=== PATIENT | female | born 1990 | race Caucasian/White ===

== ENCOUNTER 2017-12-15 08:52 | Outpatient (CLI) | payer OTHER ==
[~2017-12-15 08:52] MED LIST: INSULIN SYR1 DIS.S10 MC; LEVEMIR100 U/ML; MACROBID 100 M100 MG PO; NOVOLOG100 U/ML; PROMETRIUM200 MG PO
== END 2017-12-15 09:32 | disposition home or self-care (01) ==
LOC: LAB 08:52
DX: E11.9 Type 2 diabetes mellitus without complications (principal); R42 Dizziness and giddiness

== ENCOUNTER 2023-04-20 13:29 | Outpatient (CLI) | payer OTHER | END 2023-04-20 14:13 | disposition home or self-care (01) | LOC: PRENATAL 13:29 | PROVIDERS: ATTEND Obstetrics & Gynecology Maternal & Fetal Medicine | DX: O24.319 Unspecified pre-existing diabetes mellitus in pregnancy, unspecified trimester (principal); O36.80X0 Pregnancy with inconclusive fetal viability, not applicable or unspecified; O34.219 Maternal care for unspecified type scar from previous cesarean delivery; O14.90 Unspecified pre-eclampsia, unspecified trimester ==

== ENCOUNTER 2023-06-25 08:03 | Outpatient (CLI) | payer OTHER | END 2023-06-25 09:14 | disposition home or self-care (01) | LOC: PRENATAL 08:03 | PROVIDERS: ATTEND Obstetrics & Gynecology Maternal & Fetal Medicine | DX: O35.3XX0 Maternal care for (suspected) damage to fetus from viral disease in mother, not applicable or unspecified (principal); O24.319 Unspecified pre-existing diabetes mellitus in pregnancy, unspecified trimester; O34.219 Maternal care for unspecified type scar from previous cesarean delivery; O14.90 Unspecified pre-eclampsia, unspecified trimester; Z3A.20 20 weeks gestation of pregnancy ==

== ENCOUNTER 2023-07-18 08:10 | Outpatient (CLI) | payer OTHER | END 2023-07-18 08:48 | disposition home or self-care (01) | LOC: PRENATAL 08:10 | PROVIDERS: ATTEND Obstetrics & Gynecology Maternal & Fetal Medicine | DX: O26.849 Uterine size-date discrepancy, unspecified trimester (principal); O36.8199 Decreased fetal movements, unspecified trimester, other fetus; O24.319 Unspecified pre-existing diabetes mellitus in pregnancy, unspecified trimester; O34.219 Maternal care for unspecified type scar from previous cesarean delivery; O14.90 Unspecified pre-eclampsia, unspecified trimester; Z3A.24 24 weeks gestation of pregnancy ==

== ENCOUNTER 2023-08-15 13:32 | Outpatient (CLI) | payer OTHER | END 2023-08-15 13:36 | disposition home or self-care (01) | LOC: PRENATAL 13:32 | PROVIDERS: ATTEND Obstetrics & Gynecology Maternal & Fetal Medicine | DX: O26.849 Uterine size-date discrepancy, unspecified trimester (principal); O36.8199 Decreased fetal movements, unspecified trimester, other fetus; O24.319 Unspecified pre-existing diabetes mellitus in pregnancy, unspecified trimester; O34.219 Maternal care for unspecified type scar from previous cesarean delivery; O14.90 Unspecified pre-eclampsia, unspecified trimester; Z3A.28 28 weeks gestation of pregnancy ==

== ENCOUNTER 2023-09-11 12:02 | Outpatient (CLI) | payer OTHER | END 2023-09-11 12:04 | disposition home or self-care (01) | LOC: PRENATAL 12:02 | PROVIDERS: ATTEND Obstetrics & Gynecology Maternal & Fetal Medicine | DX: O26.849 Uterine size-date discrepancy, unspecified trimester (principal); O36.8199 Decreased fetal movements, unspecified trimester, other fetus; O24.319 Unspecified pre-existing diabetes mellitus in pregnancy, unspecified trimester; O34.219 Maternal care for unspecified type scar from previous cesarean delivery; O14.90 Unspecified pre-eclampsia, unspecified trimester; Z3A.31 31 weeks gestation of pregnancy ==

== ENCOUNTER 2023-09-24 05:23 | Inpatient (IN) | payer OTHER ==
[~2023-09-24] VITALS: Ht 162.6 cm; Wt 79.8 kg
[~2023-09-24 05:23] MED LIST changes: +HUMALOG100 UNIT/1 SUBCUTANEO; +HUMULIN N100 UNIT/2 SUBCUTANEO
[2023-09-24] MEDS ORDERED: PRENATAL CAPLE1 EAC1 PO (06:07)
[2023-09-24] MEDS ORDERED: NEURONTIN300 MG PO (06:08)
[2023-09-24] MEDS ORDERED: NOVOLIN R100 UNIT/1 SUBCUTANEO ×2 (06:11)
[2023-09-24 07:02] LABS: PH,URINE 6.5 (5.0-8.0); URINE APPEARANCE Clear; URINE BILIRRUBIN Negative (NEGATIVE); URINE BLOOD Negative; URINE COLOR Yellow; URINE LEUKOCYTE Negative; URINE NITRATE Negative
[2023-09-24 07:04] LABS: URINE BACTERIA 308.5 uL (0.0-1933); URINE EPITHELIAL CELLS 16.2 uL (0.0-38.8); URINE WBC 9.4 uL (0.0-23.2)
[2023-09-24 07:23] LABS: URINE RBC 1.4 uL (0.0-20.8)
[2023-09-24 07:24] LABS: URINE GLUCOSE >=1000 MG/DL (NEGATIVE); URINE PROTEIN 100 (NEGATIVE)
[2023-09-24 07:28] LABS: ALBUMIN 2.2 gm/dL (3.4-5.0); BILIRUBIN TOTAL 0.16 mg/dL (0.3-1.2); CALCIUM 9.2 mg/dL (8.5-10.1); CREATININE SERUM 0.79 mg/dL (0.55-1.02); GFR 85.45; GLOBULINA 3.6 G/DL (2.4-3.5); HEMATOCRIT 32.8 % (36.0-45.00); HEMOGLOBIN 11.1 g/dL (12.0-15.00); MEAN CORPUSCULAR HEMOGLOBIN 26.8 pg (27.00-32.0); PLATELET COUNT 149 K/uL (150-450); POTASSIUM 3.96 mEq/L (3.5-5.1); RED BLOOD COUNT 4.15 M/uL (4.00-6.00); RED CELL DISTRIBUTION WIDTH 14.7 % (11.5-14.5); TOTAL PROTEIN 5.8 gm/dL (6.4-8.2)
[2023-09-24 07:34] LABS: INR < 0.93; PARTIAL THROMBOPLASTIN TIME 25.3 SECONDS (22.0-34.0); PROTHROMBIN TIME 9.3 SECONDS (9.0-11.5)
[2023-09-25 06:52] LABS: URINE PROT QUANT 24HR 128.2 MG/DL
[2023-09-25] MEDS ORDERED: LABETALOL HCL100 MG PO (09:37)
== END 2023-09-25 11:24 | disposition home or self-care (01) | DRG 832 ==
LOC: LDR 05:23
PROVIDERS: Obstetrics & Gynecology; ADMIT Specialist; ATTEND Specialist
PROC: 4A1HXCZ Monitoring of Products of Conception, Cardiac Rate, External Approach (ICD-10-PCS; principal; 2023-09-24)
PROC: BY4FZZZ Ultrasonography of Third Trimester, Single Fetus (ICD-10-PCS; 2023-09-24)
DX: O13.3 Gestational [pregnancy-induced] hypertension without significant proteinuria, third trimester (principal); O24.313 Unspecified pre-existing diabetes mellitus in pregnancy, third trimester; E11.8 Type 2 diabetes mellitus with unspecified complications; Z3A.33 33 weeks gestation of pregnancy; Z20.822 Contact with and (suspected) exposure to COVID-19; O36.8130 Decreased fetal movements, third trimester, not applicable or unspecified; Z79.4 Long term (current) use of insulin; Z79.85 Long-term (current) use of injectable non-insulin antidiabetic drugs

== ENCOUNTER 2023-10-11 14:50 | Inpatient (IN) | payer OTHER ==
[~2023-10-11] VITALS: Ht 162.6 cm; Wt 86.2 kg
[~2023-10-11 14:50] MED LIST changes: +LABETALOL HCL100 MG PO; +NEURONTIN300 MG PO; +NOVOLIN R100 UNIT/1 SUBCUTANEO; +PRENATAL CAPLE1 EAC1 PO
[2023-10-11] MEDS ORDERED: PRENATAL TABLE1 EAC1 (16:21)
[2023-10-11] MEDS ORDERED: NEURONTIN800 MG PO (16:22)
[2023-10-11] MEDS ORDERED: LABETALOL HCL100 MG PO (16:22)
[2023-10-11 16:30] LABS: HEMATOCRIT 38.2 % (36.0-45.00); HEMOGLOBIN 12.7 g/dL (12.0-15.00); MEAN CELL VOLUME 79.3 fL (80.00-100.00); MEAN CORPUSCULAR HEMOGLOBIN 26.3 pg (27.00-32.0); MEAN CORPUSCULAR HGB CONC 33.1 g/dl (32.0-36.0); PLATELET COUNT 149 K/uL (150-450); RED BLOOD COUNT 4.82 M/uL (4.00-6.00); RED CELL DISTRIBUTION WIDTH 15.2 % (11.5-14.5)
[2023-10-11 16:34] LABS: URINE APPEARANCE Cloudy; URINE BILIRRUBIN Negative (NEGATIVE); URINE BLOOD Trace; URINE COLOR Dark Yellow; URINE LEUKOCYTE Negative; URINE NITRATE Negative; URINE PROTEIN >=1000 (NEGATIVE)
[2023-10-11 16:37] LABS: URINE BACTERIA 1828.2 uL (0.0-1933); URINE EPITHELIAL CELLS 86.8 uL (0.0-38.8); URINE RBC 11.9 uL (0.0-20.8); URINE WBC 77.1 uL (0.0-23.2)
[2023-10-11 16:45] LABS: INR < 0.93; PROTHROMBIN TIME 9.2 SECONDS (9.0-11.5)
[2023-10-11 16:53] LABS: ALBUMIN 1.9 gm/dL (3.4-5.0); BILIRUBIN TOTAL 0.19 mg/dL (0.3-1.2); CALCIUM 9.5 mg/dL (8.5-10.1); CREATININE SERUM 1.09 mg/dL (0.55-1.02); GFR 58.94; GLOBULINA 3.9 G/DL (2.4-3.5); POTASSIUM 4.37 mEq/L (3.5-5.1); TOTAL PROTEIN 5.8 gm/dL (6.4-8.2)
[2023-10-11 17:26] LABS: URINE GLUCOSE 100 MG/DL (NEGATIVE)
[2023-10-12 00:54] LABS: HEMATOCRIT 34.2 % (36.0-45.00); HEMOGLOBIN 11.4 g/dL (12.0-15.00); MEAN CELL VOLUME 79.5 fL (80.00-100.00); MEAN CORPUSCULAR HEMOGLOBIN 26.4 pg (27.00-32.0); MEAN CORPUSCULAR HGB CONC 33.4 g/dl (32.0-36.0); RED BLOOD COUNT 4.31 M/uL (4.00-6.00)
[2023-10-12 00:55] LABS: PLATELET COUNT 133 K/uL (150-450)
[2023-10-13] MEDS ORDERED: IBUPROFEN800 MG PO (08:20)
[2023-10-13] MEDS ORDERED: LABETALOL HCL100 MG PO (08:20)
== END 2023-10-13 10:17 | disposition home or self-care (01) | DRG 786 ==
LOC: SURH 14:50 → LDR 14:50 → SURH 10-12 12:04
PROVIDERS: ADMIT Specialist; ATTEND Specialist
PROC: 4A1HXCZ Monitoring of Products of Conception, Cardiac Rate, External Approach (ICD-10-PCS; 2023-10-11)
PROC: 10D00Z1 Extraction of Products of Conception, Low, Open Approach (ICD-10-PCS; principal; 2023-10-11 15:00)
DX: O36.4XX0 Maternal care for intrauterine death, not applicable or unspecified (principal); O24.32 Unspecified pre-existing diabetes mellitus in childbirth; O60.14X0 Preterm labor third trimester with preterm delivery third trimester, not applicable or unspecified; O14.14 Severe pre-eclampsia complicating childbirth; O24.92 Unspecified diabetes mellitus in childbirth; Z3A.36 36 weeks gestation of pregnancy; Z37.1 Single stillbirth; Z79.4 Long term (current) use of insulin; E11.8 Type 2 diabetes mellitus with unspecified complications; Z79.85 Long-term (current) use of injectable non-insulin antidiabetic drugs; O34.211 Maternal care for low transverse scar from previous cesarean delivery

== ENCOUNTER 2025-03-10 10:49 | Outpatient (CLI) | payer OTHER ==
[~2025-03-10 10:49] MED LIST changes: +IBUPROFEN800 MG PO; +NEURONTIN800 MG PO; +PRENATAL TABLE1 EAC1
== END 2025-03-10 10:51 | disposition home or self-care (01) ==
LOC: PRENATAL 10:49
PROVIDERS: ATTEND Obstetrics & Gynecology Maternal & Fetal Medicine
DX: Z76.1 Encounter for health supervision and care of foundling (principal)

== ENCOUNTER 2025-04-09 08:20 | Outpatient (CLI) | payer OTHER | END 2025-04-09 08:22 | disposition home or self-care (01) | LOC: PRENATAL 08:20 | PROVIDERS: ATTEND Obstetrics & Gynecology Maternal & Fetal Medicine | DX: O36.80X0 Pregnancy with inconclusive fetal viability, not applicable or unspecified (principal); Z36.82 Encounter for antenatal screening for nuchal translucency; Z14.8 Genetic carrier of other disease; O24.319 Unspecified pre-existing diabetes mellitus in pregnancy, unspecified trimester; O10.019 Pre-existing essential hypertension complicating pregnancy, unspecified trimester; O34.219 Maternal care for unspecified type scar from previous cesarean delivery; Z3A.12 12 weeks gestation of pregnancy ==

== ENCOUNTER 2025-05-21 05:54 | Emergency (ER) | payer OTHER ==
[~2025-05-21] VITALS: Ht 162.6 cm; Wt 79.8 kg
[~2025-05-21 05:54] MED LIST changes: +INSULIN SYRING1 EA29 SUBCUTANEO; +NOVOLOG100 U/ML SQ
[2025-05-21 06:08] VITALS: BP 136/85; O2SAT 99
[2025-05-21] MEDS ORDERED: KETOROLAC TROMETHAMINE 60 MG VIAL IM STA (07:01)
== END 2025-05-21 10:24 | disposition home or self-care (01) ==
LOC: ER 05:54
DX: O26.892 Other specified pregnancy related conditions, second trimester (principal); Z3A.18 18 weeks gestation of pregnancy; S13.4XXA Sprain of ligaments of cervical spine, initial encounter; V43.52XA Car driver injured in collision with other type car in traffic accident, initial encounter; W22.11XA Striking against or struck by driver side automobile airbag, initial encounter; Y93.89 Activity, other specified; Y92.413 State road as the place of occurrence of the external cause; Z91.040 Latex allergy status; E11.9 Type 2 diabetes mellitus without complications; Z79.4 Long term (current) use of insulin; I10 Essential (primary) hypertension

== ENCOUNTER 2025-06-05 08:25 | Outpatient (CLI) | payer OTHER ==
[2025-06-08] MEDS ORDERED: INSULIN GL100 UNIT/1 SUBCUTANEO (13:40)
[2025-06-08] MEDS ORDERED: INSULIN SYRING1 EA29 SUBCUTANEO (13:41)
== END 2025-06-05 08:26 | disposition home or self-care (01) ==
LOC: PRENATAL 08:25
PROVIDERS: ATTEND Obstetrics & Gynecology Maternal & Fetal Medicine
DX: O44.00 Complete placenta previa NOS or without hemorrhage, unspecified trimester (principal); O24.319 Unspecified pre-existing diabetes mellitus in pregnancy, unspecified trimester; O10.019 Pre-existing essential hypertension complicating pregnancy, unspecified trimester; O34.219 Maternal care for unspecified type scar from previous cesarean delivery; Z3A.20 20 weeks gestation of pregnancy

== ENCOUNTER 2025-07-10 09:10 | Outpatient (CLI) | payer OTHER ==
[~2025-07-10 09:10] MED LIST changes: +INSULIN GL100 UNIT/1 SUBCUTANEO
== END 2025-07-10 09:11 | disposition home or self-care (01) ==
LOC: PRENATAL 09:10
PROVIDERS: ATTEND Obstetrics & Gynecology Maternal & Fetal Medicine
DX: O26.849 Uterine size-date discrepancy, unspecified trimester (principal); O24.319 Unspecified pre-existing diabetes mellitus in pregnancy, unspecified trimester; O10.019 Pre-existing essential hypertension complicating pregnancy, unspecified trimester; O34.219 Maternal care for unspecified type scar from previous cesarean delivery; Z3A.26 26 weeks gestation of pregnancy

== ENCOUNTER → 2025-08-05 12:08 | Outpatient (CLI) | payer OTHER | END | disposition home or self-care (01) | LOC: PRENATAL 12:08 | PROVIDERS: ATTEND Obstetrics & Gynecology Maternal & Fetal Medicine | DX: O26.849 Uterine size-date discrepancy, unspecified trimester (principal); O36.8130 Decreased fetal movements, third trimester, not applicable or unspecified; O24.319 Unspecified pre-existing diabetes mellitus in pregnancy, unspecified trimester; O10.019 Pre-existing essential hypertension complicating pregnancy, unspecified trimester; O34.219 Maternal care for unspecified type scar from previous cesarean delivery; O36.60X0 Maternal care for excessive fetal growth, unspecified trimester, not applicable or unspecified; Z3A.31 31 weeks gestation of pregnancy ==

== ENCOUNTER 2025-08-25 13:07 | Inpatient (IN) | payer OTHER ==
[~2025-08-25] VITALS: Ht 162.6 cm; Wt 88.0 kg
[2025-08-25 12:44] VITALS: BP 124/76
[2025-08-25 13:28] LABS: BASO % 0.2 % (0.1-1.2); EOS # 0.10 (0.04-0.54); EOS % 0.9 % (0.7-7.0); LYMPH # 2.39 (1.18-3.74); LYMPH % 22.6 % (19.3-53.1); MEAN PLATELET VOLUME 11.20 fl (9.4-12.4); MONO # 0.86 (0.24-0.82); MONO % 8.1 % (4.7-12.5); NEUT # 7.19 (1.56-6.13); NEUT % 68.0 % (34.0-71.1); RED CELL DISTRIBUTION WIDTH 13.3 % (11.6-14.4)
[2025-08-25] MEDS ORDERED: RINGERS SOLUTION,LACTATED 1,000 ML IV SCH (13:30)
[2025-08-25] MEDS ORDERED: TERBUTALINE SULFATE 1 MG/ML AMPUL SUBCUTANEO ONE (13:30)
[2025-08-25 13:31] LABS: URINE APPEARANCE Clear; URINE BILIRRUBIN Negative (NEGATIVE); URINE BLOOD Negative; URINE COLOR Yellow; URINE GLUCOSE Negative (NEGATIVE); URINE KETONE Negative (NEGATIVE); URINE LEUKOCYTE Large; URINE NITRATE Negative; URINE PROTEIN 30 (NEGATIVE); URINE UROBILINOGEN 1.0 E.U./dl
[2025-08-25 13:32] LABS: URINE BACTERIA 1107.4 uL (0.0-1933); URINE EPITHELIAL CELLS 31.8 uL (0.0-38.8); URINE RBC 2.4 uL (0.0-20.8); URINE WBC 36.9 uL (0.0-23.2)
[2025-08-25 13:40] LABS: URINE CAST 0.29 uL (0.0-1.40)
[2025-08-25] MEDS ORDERED: ADULT LOW DOSE81 M1 PO (13:41)
[2025-08-25 15:27] VITALS: BP 128/81
[2025-08-25] MEDS ORDERED: INSULIN LISPRO 1,000 UNIT/10 ML UNITS SUBCUTANEO SCH (16:00)
[2025-08-25] MEDS ORDERED: DOCUSATE SODIUM 100MG CAP PO SCH (17:00)
[2025-08-25 19:44] VITALS: BP 127/73
[2025-08-25] MEDS ORDERED: INSULIN GLARGINE,HUM.REC.ANLOG 1,000 UNITS/10 ML UNITS SUBCUTANEO SCH (21:00)
[2025-08-25] MEDS ORDERED: MetFORMIN HCL 500 MG TABLET PO SCH (21:00)
[2025-08-25] MEDS ORDERED: MAGNESIUM SULFATE IN WATER 4 GM/100 ML PIGGYBACK IV ONE (22:45)
[2025-08-25] MEDS ORDERED: MAGNESIUM SULFATE IN WATER 500 ML IV SCH (22:45)
[2025-08-25 23:25] VITALS: BP 124/76
[2025-08-26 04:02] VITALS: BP 119/76
[2025-08-26 06:00] VITALS: BP 101/68; BP 119/76
[2025-08-26] MEDS ORDERED: BETAMETHASONE ACETATE,SOD PHOS 30 MG/5 ML ML IM STA (06:21)
[2025-08-26 07:33] VITALS: BP 117/74
[2025-08-26] MEDS ORDERED: PNV,CALCIUM 72/IRON/FOLIC ACID 1 TAB TABLET PO SCH (09:00)
[2025-08-26] MEDS ORDERED: LABETALOL HCL 100 MG TABLET PO SCH (09:00)
[2025-08-26] MEDS ORDERED: ASPIRIN 81 MG TABLET.EC PO SCH (09:00)
[2025-08-26] MEDS ORDERED: MORPHINE SULFATE 4 MG/ML CARTRIDGE IV STA (09:06)
[2025-08-26 11:35] VITALS: BP 117/73
[2025-08-26] MEDS ORDERED: INSULIN LISPRO 1,000 UNIT/10 ML UNITS SUBCUTANEO PRN (12:15)
[2025-08-26 15:52] VITALS: BP 121/79
[2025-08-26] MEDS ORDERED: ACETAMINOPHEN 500 MG GEL..CAP PO ONE (17:51)
[2025-08-26 18:30] VITALS: BP 128/74; O2SAT 98
[2025-08-26] MEDS ORDERED: ACETAMINOPHEN 500 MG GEL..CAP PO PRN (19:00)
[2025-08-26] MEDS ORDERED: MORPHINE SULFATE 4 MG/ML CARTRIDGE IV ONE (19:00)
[2025-08-26] MEDS ORDERED: FAMOTIDINE/PF 20 MG/2 ML VIAL IV PUSH PRN (21:00)
[2025-08-27] VITALS (7 sets, daily range): BP systolic 102–137; BP diastolic 63–74; O2SAT 96–99
[2025-08-27] MEDS ORDERED: BETAMETHASONE ACETATE,SOD PHOS 30 MG/5 ML ML IM SCH (06:00)
[2025-08-27] MEDS ORDERED: MAGNESIUM HYDROXIDE 30 ML BLIST.PACK PO STA (08:20)
[2025-08-27] MEDS ORDERED: MINERAL OIL 30 ML BLIST.PACK PO STA (08:20)
[2025-08-28 04:00] VITALS: BP 102/75
[2025-08-28 06:23] VITALS: BP 129/79; O2SAT 98
[2025-08-28] MEDS ORDERED: MAGNESIUM HYDROXIDE 30 ML BLIST.PACK PO STA (06:31)
[2025-08-28] MEDS ORDERED: MINERAL OIL 30 ML BLIST.PACK PO STA (06:32)
[2025-08-28] MEDS ORDERED: INSULIN LISPRO 1,000 UNIT/10 ML UNITS SUBCUTANEO PRN (11:00)
[2025-08-28 12:17] VITALS: BP 119/75
[2025-08-28 15:35] VITALS: BP 118/62
[2025-08-28] MEDS ORDERED: INSULIN LISPRO 1,000 UNIT/10 ML UNITS SUBCUTANEO STA (16:52)
[2025-08-28 19:31] VITALS: BP 135/70
[2025-08-28] MEDS ORDERED: NIFEDIPINE 20 MG CAPSULE PO STA (22:34)
[2025-08-28] MEDS ORDERED: NIFEDIPINE 10 MG CAPSULE PO PRN (22:45)
[2025-08-28 23:16] VITALS: BP 133/77
[2025-08-29 03:38] VITALS: BP 109/63
[2025-08-29 07:44] VITALS: BP 135/74
[2025-08-29 15:42] VITALS: BP 121/73
[2025-08-29] MEDS ORDERED: NIFEDIPINE 30 MG TAB.SA.OSM PO SCH (17:30)
[2025-08-29 23:38] VITALS: BP 121/78
[2025-08-30 04:15] VITALS: BP 128/81
[2025-08-30 07:28] VITALS: BP 135/84
[2025-08-30 11:27] VITALS: BP 133/78
[2025-08-30 15:20] VITALS: BP 133/86
[2025-08-30] MEDS ORDERED: DOCUSATE SODIUM 100MG CAP PO SCH (17:00)
[2025-08-30 23:32] VITALS: BP 116/75; O2SAT 100
[2025-08-31 03:32] VITALS: BP 116/74
[2025-08-31 06:29] VITALS: BP 121/65; O2SAT 97
[2025-08-31 11:29] VITALS: BP 149/76
[2025-08-31 15:17] VITALS: BP 139/76
[2025-08-31 20:10] VITALS: BP 133/79
[2025-08-31 23:40] VITALS: BP 132/71; O2SAT 98
[2025-09-01 03:14] VITALS: BP 130/68
[2025-09-01 06:13] VITALS: BP 121/55; O2SAT 98
[2025-09-01] MEDS ORDERED: MINERAL OIL 30 ML BLIST.PACK PO STA (08:40)
[2025-09-01] MEDS ORDERED: MAGNESIUM HYDROXIDE 30 ML BLIST.PACK PO STA (08:41)
[2025-09-01] MEDS ORDERED: FAMOTIDINE/PF 20 MG/2 ML VIAL IV PRN (08:45)
[2025-09-01 15:39] VITALS: BP 135/78
[2025-09-01 19:14] VITALS: BP 137/70
[2025-09-01 23:25] VITALS: BP 122/59; O2SAT 97
[2025-09-02] VITALS (10 sets, daily range): BP systolic 130–162; BP diastolic 60–84; O2SAT 98–99
[2025-09-02 08:40] LABS: BASO % 0.1 % (0.1-1.2); EOS # 0.18 (0.04-0.54); EOS % 2.3 % (0.7-7.0); LYMPH # 2.35 (1.18-3.74); LYMPH % 30.2 % (19.3-53.1); MEAN PLATELET VOLUME 11.10 fl (9.4-12.4); MONO # 0.74 (0.24-0.82); MONO % 9.5 % (4.7-12.5); NEUT # 4.50 (1.56-6.13); NEUT % 57.8 % (34.0-71.1); RED CELL DISTRIBUTION WIDTH 13.7 % (11.6-14.4); URINE APPEARANCE Cloudy; URINE BILIRRUBIN Negative (NEGATIVE); URINE BLOOD Negative; URINE COLOR Yellow; URINE GLUCOSE Negative (NEGATIVE); URINE KETONE Negative (NEGATIVE); URINE LEUKOCYTE Negative; URINE NITRATE Negative; URINE UROBILINOGEN 0.2 E.U./dl
[2025-09-02 08:44] LABS: URINE BACTERIA 835.1 uL (0.0-1933); URINE CAST 0.29 uL (0.0-1.40); URINE EPITHELIAL CELLS 49.5 uL (0.0-38.8); URINE PROTEIN 100 (NEGATIVE); URINE RBC 1.7 uL (0.0-20.8); URINE WBC 36.6 uL (0.0-23.2)
[2025-09-02 09:00] LABS: INR 0.94
[2025-09-02 09:05] LABS: ALT/SGPT 22.0 U/L (12-78); AST/SGOT 20.0 U/L (15-37); BILIRUBIN TOTAL 0.21 mg/dL (0.3-1.2); BUN CREA RATIO 14.0 (7.0-25.0); CREATININE SERUM 0.57 mg/dL (0.55-1.02); GFR 122.92; GLOBULINA 3.3 G/DL (2.4-3.5); GLUCOSE FASTING 70.0 mg/dL (65-100); OSMOLALITY SERUM 280.0 MOSM/KG (275-295)
[2025-09-03] VITALS (7 sets, daily range): BP systolic 129–146; BP diastolic 78–84; O2SAT 98
[2025-09-03] MEDS ORDERED: ACETAMINOPHEN 500 MG GEL..CAP PO PRN (11:15)
[2025-09-04 03:05] VITALS: BP 138/84
[2025-09-04 06:27] VITALS: BP 137/84; O2SAT 97
[2025-09-04] MEDS ORDERED: CEFAZOLIN SODIUM 1,000 MG VIAL IV SCH ×2 (06:30→14:00)
[2025-09-04] MEDS ORDERED: OXYTOCIN 10 UNITS/ML VIAL IV ONE (10:00)
[2025-09-04] MEDS ORDERED: RINGERS SOLUTION,LACTATED 1,000 ML IV SCH (10:00)
[2025-09-04] MEDS ORDERED: ERYTHROMYCIN BASE OPHT 1GM EACH TUBE OP ONE (10:00)
[2025-09-04] MEDS ORDERED: MORPHINE SULFATE 4 MG/ML CARTRIDGE IV PRN (10:15)
[2025-09-04 15:04] VITALS: BP 134/80
[2025-09-04] MEDS ORDERED: KETOROLAC TROMETHAMINE 60 MG VIAL IM ONE (17:36)
[2025-09-04] MEDS ORDERED: KETOROLAC TROMETHAMINE 60 MG VIAL IM STA (18:47)
[2025-09-04] MEDS ORDERED: KETOROLAC TROMETHAMINE 30 MG VIAL IV SCH (18:48)
[2025-09-04 21:09] VITALS: BP 130/80
[2025-09-05 00:12] VITALS: BP 135/83
[2025-09-05 01:10] LABS: BASO % 0.2 % (0.1-1.2); EOS # 0.12 (0.04-0.54); EOS % 1.2 % (0.7-7.0); LYMPH # 1.49 (1.18-3.74); LYMPH % 14.5 % (19.3-53.1); MEAN PLATELET VOLUME 11.30 fl (9.4-12.4); MONO # 0.76 (0.24-0.82); MONO % 7.4 % (4.7-12.5); NEUT # 7.87 (1.56-6.13); NEUT % 76.4 % (34.0-71.1); RED CELL DISTRIBUTION WIDTH 13.9 % (11.6-14.4)
[2025-09-05] MEDS ORDERED: ACETAMINOPHEN 500 MG GEL..CAP PO PRN (08:45)
[2025-09-05] MEDS ORDERED: SIMETHICONE 125 MG CAPSULE PO SCH (09:00)
[2025-09-05] MEDS ORDERED: DOCUSATE SODIUM 100MG CAP PO SCH (09:00)
[2025-09-05 10:28] VITALS: BP 140/80
[2025-09-05] MEDS ORDERED: KETOROLAC TROMETHAMINE 60 MG VIAL IM PRN (15:00)
[2025-09-05 16:00] VITALS: BP 129/80
[2025-09-05] MEDS ORDERED: INSULIN LISPRO 1,000 UNIT/10 ML UNITS SUBCUTANEO SCH (16:00)
[2025-09-05] MEDS ORDERED: MetFORMIN HCL 500 MG TABLET PO SCH (21:00)
[2025-09-06 00:30] VITALS: BP 135/84
[2025-09-06 09:56] VITALS: BP 133/83
[2025-09-06 16:20] VITALS: BP 153/87
[2025-09-07] VITALS (9 sets, daily range): BP systolic 143–182; BP diastolic 71–94; O2SAT 99
[2025-09-07] MEDS ORDERED: LABETALOL HCL 200 MG TABLET PO SCH (09:00)
[2025-09-07] MEDS ORDERED: INSULIN LISPRO 1,000 UNIT/10 ML UNITS SUBCUTANEO SCH (11:00)
== END 2025-09-07 18:25 | disposition home or self-care (01) | DRG 783 ==
LOC: OBS/DEL 13:07 → LDR 08-26 05:45 → O/R 09-04 08:08 → OB/GYN 09-04 14:30
PROVIDERS: ADMIT Specialist; ATTEND Specialist
PROC: 4A1HXCZ Monitoring of Products of Conception, Cardiac Rate, External Approach (ICD-10-PCS; 2025-08-26)
PROC: BY4FZZZ Ultrasonography of Third Trimester, Single Fetus (ICD-10-PCS; 2025-08-31)
PROC: BU4CZZZ Ultrasonography of Uterus and Ovaries (ICD-10-PCS; 2025-08-31)
PROC: 0UB70ZZ Excision of Bilateral Fallopian Tubes, Open Approach (ICD-10-PCS; 2025-09-04)
PROC: 10D00Z1 Extraction of Products of Conception, Low, Open Approach (ICD-10-PCS; principal; 2025-09-04 07:30)
DX: O60.14X0 Preterm labor third trimester with preterm delivery third trimester, not applicable or unspecified (principal); O24.32 Unspecified pre-existing diabetes mellitus in childbirth; O10.92 Unspecified pre-existing hypertension complicating childbirth; O36.63X0 Maternal care for excessive fetal growth, third trimester, not applicable or unspecified; O36.8130 Decreased fetal movements, third trimester, not applicable or unspecified; O34.211 Maternal care for low transverse scar from previous cesarean delivery; Z3A.32 32 weeks gestation of pregnancy; Z30.2 Encounter for sterilization; Z79.4 Long term (current) use of insulin; Z37.0 Single live birth